=== PATIENT | female | born 2000 | race Caucasian/White ===

== ENCOUNTER → 2019-03-18 | Emergency (ER) | payer SELFPAY | PROVIDERS: Emergency Provider Emergency Medicine; Visit Provider Emergency Medicine | DX: S00.93XA Contusion of unspecified part of head, initial encounter (principal); V49.9XXA Car occupant (driver) (passenger) injured in unspecified traffic accident, initial encounter ==

== ENCOUNTER → 2020-04-24 13:51 | Outpatient (BNVA) | payer SELFPAY | PROVIDERS: Visit Provider Nurse Practitioner Family | DX: Z20.828 Contact with and (suspected) exposure to other viral communicable diseases (principal); J06.9 Acute upper respiratory infection, unspecified | CPT/HCPCS: 87635 ==